=== PATIENT | male | born 1950 | race Caucasian/White ===

== ENCOUNTER → 2018-07-31 | Outpatient (CLI) | payer MEDICARE, OTHER | END | disposition home or self-care (01) | LOC: LABWHC1 09:50 | PROVIDERS: ATTEND Family Medicine | DX: E87.5 Hyperkalemia (principal) | CPT/HCPCS: 36415; 84132 ==

== ENCOUNTER → 2019-09-22 | Outpatient (CLI) | payer MEDICARE, OTHER ==
[2019-09-22 18:25] LABS: African American GFR (CKD) >90 (>60 ml/min/1.73 sqM); Blood Urea Nitrogen 14 mg/dL (9-20); Non-African American GFR(CKD) >90 (>60 ml/min/1.73 sqM)
--- NOTE | 2019-09-23 09:59 | CT ---
EXAMINATION TYPE: CT chest w con DATE OF EXAM: 09/22/2019 COMPARISON: 05/10/2010 HISTORY: Thoracic spine pain, no known injury. CT DLP: 680 mGycm, Automated exposure control for dose reduction was used. CONTRAST: Performed injected with 100ml mL of Isovue 300. TECHNIQUE: Axial images were obtained at 5 mm thick sections. Reconstructed images are reviewed on [employer] computer in the coronal plane. FINDINGS: Portion of the thyroid visualized is normal. No suspicious lung nodules or focal infiltrates are present. Pleural plaquing is evident along the po sterior and anterior right lung. Calcification is along the diaphragm, which is increasing from aida rison 2010, can be related to prior asbestos exposure. Some fibrosis may be within the lingula. No enlarged mediastinal or hilar adenopathy is evident. The ascending aorta diameter at the level o f the main pulmonary artery is 3.9 cm. The main pulmonary artery diameter at the bifurcation is 3.[address] sections are obtained through the upper abdomen. Small cyst may be within the periphery of the right upper liver lobe. Degenerative disc change with some vacuum phenomenon is evident within the thoracic spine. Mild spond ylosis is present. Vertebral body heights are preserved. No suspicious spinal canal stenosis is evide nt. IMPRESSIONS: 1. Increasing changes of pleural plaque and calcification at the diaphragms compatible with prior asb estos exposure. 2. No acute suspicious changes to account for thoracic pain.
== END | disposition home or self-care (01) ==
LOC: RADCTMAIN 17:25
PROVIDERS: ATTEND Family Medicine
DX: J92.9 Pleural plaque without asbestos (principal); J94.8 Other specified pleural conditions; M54.6 Pain in thoracic spine
CPT/HCPCS: 82565; 84520; 71260; 36415; Q9967

== ENCOUNTER 2020-07-29 08:45 | Day surgery (SDC) | payer MEDICARE, OTHER ==
[2020-07-16 13:18] VITALS: BMI 35.9
[~2020-07-29 08:45] MED LIST: LACTATED RINGERS 1,000 ML IV SCH
[2020-07-29 09:06] VITALS: TEMP 97.1
[2020-07-29] MEDS ORDERED: PROPOFOL 10 MG/ML 20 ML VIAL IV ONE (10:01)
--- NOTE | 2020-07-29 10:49 | P.PCN ---
Date of Procedure: 07/29/20 Description of Procedure: BRIEF HISTORY: Patient is a 70-year-old male presenting for outpatient colonoscopy for evaluation of personal history of colon polyps. Patient was last colonoscopy approximately 5 years ago. No change in bowel habits. He does report family history of colon cancer in his brother. PROCEDURE PERFORMED: Colonoscopy with polypectomy. PREOPERATIVE DIAGNOSIS: Personal history of colon polyps, last colonoscopy 5 years ago by report, patient also reports family history of colon cancer in his brother ESTIMATED BLOOD LOSS: Minimal. IV sedation per Anesthesia. PROCEDURE: After informed consent was obtained, the patient, was brought into the endoscopy unit. IV sedation was administered by Anesthesia under continuous monitoring. Digital rectal examination was normal. Initially the Olympus CF-190 flexible video colonoscope was then inserted in the rectum, gradually advanced into the cecum without any difficulty. Careful examination was performed as the scope was gradually being withdrawn. Ileocecal valve and the appendiceal orifice were visualized and appeared normal. Prep was excellent. Mucosa of the cecum, ascending colon, transverse colon, descending colon, sigmoid colon, and rectum appeared normal. A few scattered diverticula noted throughout the colon with a higher number located in the left colon both small and large in caliber. Internal hemorrhoids were seen on retroflexion. The patient had 2 diminutive polyps removed with cold forcep polypectomy measuring 1-2 mm in size from the cecum and ascending colon. 2 sessile polyps removed with cold snare polypectomy from the descending colon and sigmoid colon. . Retroflexion was performed in the rectum and no lesions were seen. The patient tolerated the procedure well. IMPRESSION: 2 polyps removed with cold snare polypectomy from the descending colon and sigmoid. 2 diminutive polyps removed from the cecum and ascending colon with cold forceps polypectomy. Moderate patterson diverticulosis. Internal hemorrhoids. RECOMMENDATIONS: Findings of this examination were discussed with the patient and his family. Okay to resume diet. Okay to resume medications. Await pathology from polypectomies. Recommend repeat colonoscopy in 5 years for family history of colon cancer and personal history of colon polyps any pathology from polypectomies.
[2020-07-29 11:07] VITALS: BP 122/59; PULSE 79; RESP 18
== END 2020-07-29 11:50 | disposition home or self-care (01) ==
LOC: ORWHC2ENDO 08:45
PROVIDERS: ATTEND Internal Medicine
DX: D12.2 Benign neoplasm of ascending colon (principal); D12.4 Benign neoplasm of descending colon; D12.5 Benign neoplasm of sigmoid colon; K64.8 Other hemorrhoids; K57.30 Diverticulosis of large intestine without perforation or abscess without bleeding; Z86.010 Personal history of colon polyps; Z80.0 Family history of malignant neoplasm of digestive organs; E78.5 Hyperlipidemia, unspecified
CPT/HCPCS: 88305; 45380; 45385; J2704